=== PATIENT | male | born 1985 | race African-American/Black ===

== ENCOUNTER 2017-08-25 12:19 | Emergency (ER) | payer OTHER ==
[2017-08-25 12:34] VITALS: BP 116/70; PULSE 82; TEMP 97.8; BMI 16.7
--- NOTE | 2017-08-25 12:52 | PDOC ---
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 There was blood on toilet paper and bright red blood in the toilet bowl with brown stool. Stool wasn't hard. He went to the urgent care center this morning and got a rectal exam negative for hemorrhoids and blood. didn't move his bowels since then. Denies being constipated. This has never happened to him before. \ Past History - Past Medical History Allergies/Adverse Reactions: Allergies Allergy/AdvReac Type Severity Reaction Status Date / Time No Known Allergies Allergy Verified 08/25/17 12:33 Home Medications: Ambulatory Orders Carvedilol 3.125 mg PO BID 08/27/14 Lisinopril [Prinivil -] 5 mg PO DAILY 06/25/15 Cardiac Disorders: Yes COPD: No Other medical history: MUSCULAR DYSTROPHY - Surgical History Cardiac Surgery: Yes (PM 2015) - Immunization History Immunization Up to Date: Yes - Suicide/Smoking/Psychosocial Hx Smoking Status: No Smoking History: Never smoked Have you smoked in the past 12 months: No Number of Cigarettes Smoked Daily: 0 If you are a former smoker, when did you quit?: 7MONTHS AGO 'Breaking Loose' booklet given: 09/27/13 Hx Alcohol Use: Yes (OCCAS (3WKS AGO)) Drug/Substance Use Hx: No Substance Use Type: Alcohol Hx Substance Use Treatment: No Review of Systems - Review of Systems Constitutional: No: Symptoms Reported HEENTM: No: Symptoms Reported Respiratory: No: Symptoms reported Cardiac (ROS): No: Symptoms Reported ABD/GI: No: Symptoms Reported : No: Symptoms Reported Musculoskeletal: No: Symptoms Reported Integumentary: No: Symptoms Reported Neurological: No: Symptoms reported All Other Systems: Reviewed and Negative *Physical Exam - Vital Signs Last Vital Signs Temp Pulse Resp BP Pulse Ox 97.8 F 82 18 116/70 98 08/25/17 12:20 08/25/17 12:20 08/25/17 12:20 08/25/17 12:20 08/25/17 12:20 - Physical Exam General Appearance: Yes: Nourished, Appropriately Dressed. No: Apparent Distress HEENT: positive: EOMI, [place], Normal ENT Inspection Neck: negative: Tender Respiratory/Chest: positive: Lungs Clear, Normal Breath Sounds. negative: Chest Tender Cardiovascular: positive: Regular Rhythm, Regular Rate, S1, S2 Gastrointestinal/Abdominal: positive: Normal Bowel Sounds, Flat, Soft. negative : Tender Integumentary: positive: Normal Color, Dry, Warm Neurologic: positive: Fully Oriented, Alert, Normal Mood/Affect ED Treatment Course - LABORATORY CBC & Chemistry Diagram: 08/25/17 13:22 08/25/17 13:22 Medical Decision Making - Medical Decision Making 08/25/17 14:16 31M with 1 episode of painless hematochezia 2 days ago Basic labs, negative Occult stool negative GI follow up. 08/25/17 15:08 *DC/Admit/Observation/Transfer Diagnosis at time of Disposition: Hematochezia - Discharge Dispostion Disposition: HOME Admit: Yes - Referrals Referrals: Jose Alberto Farmer MD [Primary Care Provider] - Bernabe Iqbal DO [Staff Physician] - - Patient Instructions Printed Discharge Instructions: DI for Rectal Bleeding Additional Instructions: Follow up with Dr. Iqbal for possible colonoscopy/sigmoidoscopy Come back to work for any new, worsening or concerning symptoms. - Post Discharge Activity Forms/Work/School Notes: Back to Work
[2017-08-25 13:42] LABS: BASO % 0.6 % (0-2.0); EOS % 3.8 % (0-4.5); LYMPH % 25.1 % (8-40); MCH 27.3 pg (25.7-33.7); MCHC 31.8 g/dl (32.0-35.9); MEAN CELL VOLUME 85.9 fl (80-96); MEAN PLT VOLUME 8.7 fl (7.5-11.1); MONO % 5.8 % (3.8-10.2); NEUT % 64.7 % (42.8-82.8); PLATELET COUNT 190 K/MM3 (134-434); RBC 5.12 M/mm3 (4.00-5.60); RDW 14.2 % (11.9-15.9); WHITE BLOOD COUNT 8.1 K/mm3 (4.0-10.0)
[2017-08-25 14:06] LABS: ALBUMIN 4.4 g/dl (3.4-5.0); ANION GAP 4 (8-16); BILIRUBIN,TOTAL 0.9 mg/dL (0.2-1.0); BLOOD UREA NITROGEN 14 mg/dL (7-18); CALCIUM 9.2 mg/dL (8.5-10.1); CHLORIDE 103 mmol/L (98-107); CO2 31 mmol/L (21-32); CREATININE 0.3 mg/dL (0.7-1.3); GLUCOSE,RANDOM 85 mg/dL (74-106); POTASSIUM 4.3 mmol/L (3.5-5.1); SGOT/AST 109 U/L (15-37); SGPT/ALT 156 U/L (12-78); SODIUM 138 mmol/L (136-145)
[2017-08-25 14:07] LABS: ALK PHOS 53 U/L (45-117)
--- NOTE | 2017-08-25 14:56 | PDOC ---
Attending Attestation - Resident Resident Name: InnaCurtis - ED Attending Attestation I have performed the following: I have examined & evaluated the patient, The case was reviewed & discussed with the resident, I agree w/resident's findings & plan, Exceptions are as noted - HPI HPI: 08/25/17 14:51 " The patient is a 31 year old male, with a significant past medical history of muscular dystrophy, pacemaker, who presents to the emergency department with one episode of bright red blood per rectum 2 days ago. The patient states he moved his bowels on Friday evening and saw blood on the tissue with brown stool after wiping, as well as, bright red streaks mixed with brown stool in the toilet. The patient had one BM today that was normal, nonbloody. Pt is not on blood thinners. Has never had bloody stool before. Denies N/V. Denies abdominal pain. The patient denies chest pain, shortness of breath, headache and dizziness. The patient denies fever, chills, nausea, vomit, diarrhea and constipation. The patient denies dysuria, frequency, urgency and hematuria. Allergies: NKDA " - Physicial Exam PE: 08/25/17 14:55 GENERAL: Awake, alert, and fully oriented, in no acute distress HEAD: No signs of trauma EYES: PERRLA, EOMI, sclera anicteric, conjunctiva clear ENT: Auricles normal inspection, hearing grossly normal, nares patent, oropharynx clear without exudates. Moist mucosa NECK: Nontender, no stepoffs, Normal ROM, supple, no lymphadenopathy, JVD, or masses LUNGS: Breath sounds equal, clear to auscultation bilaterally. No wheezes, and no crackles HEART: Regular rate and rhythm, normal S1 and S2, no murmurs, rubs or gallops ABDOMEN: Soft, nontender, normoactive bowel sounds. No guarding, no rebound. No masses RECTAL: brown stool, no melena, no hematochezia, no hemorrhoids EXTREMITIES: Normal range of motion, no edema. No clubbing or cyanosis. No cords, erythema, or tenderness NEUROLOGICAL: Cranial nerves II through XII intact. 5/5 strength and sensation in all extremities, Normal speech, normal gait SKIN: Warm, Dry, normal turgor, no rashes or lesions noted. - Medical Decision Making 08/25/17 14:55 31 M with one episode of blood-streaked stool 2 days ago. Now with normal brown stool without blood. No anal fissures or hemorrhoids on exam but pt may have internal hemorrhoids. Pt with stable vitals, no evidence of significant blood loss. - Labs - Stool guaiac - GI f/u 08/25/17 14:58 guaiac negative Labs unremarkable Pt well appearing, vitals normal, no further episodes of BRBPR, clinically stable for DC. I discussed the physical exam findings, ancillary test results and final diagnoses with the patients family. I answered all of their questions. The family was satisfied with the care received and felt comfortable with the discharge plan and treatment plan. They agree to follow up with the primary care physician within 24-72 hours.
--- NOTE | 2017-08-25 15:10 | PDOC ---
*Physical Exam - Vital Signs Last Vital Signs Temp Pulse Resp BP Pulse Ox 97.8 F 82 18 116/70 98 08/25/17 12:20 08/25/17 12:20 08/25/17 12:20 08/25/17 12:20 08/25/17 12:20 ED Treatment Course - LABORATORY CBC & Chemistry Diagram: 08/25/17 13:22 08/25/17 13:22 - ADDITIONAL ORDERS Additional order review: Laboratory Results 08/25/17 13:22 Sodium 138 Potassium 4.3 Chloride 103 Carbon Dioxide 31 Anion Gap 4 L BUN 14 Creatinine 0.3 L Creat Clearance w eGFR > 60 Random Glucose 85 Calcium 9.2 Total Bilirubin 0.9 AST 109 H ALT 156 H Alkaline Phosphatase 53 Total Protein 8.0 Albumin 4.4 08/25/17 13:22 RBC 5.12 MCV 85.9 MCHC 31.8 L RDW 14.2 MPV 8.7 Neutrophils % 64.7 Lymphocytes % 25.1 Monocytes % 5.8 Eosinophils % 3.8 Basophils % 0.6 *DC/Admit/Observation/Transfer Diagnosis at time of Disposition: Hematochezia - Discharge Dispostion Disposition: HOME Condition at time of disposition: Good Admit: No - Referrals Referrals: Bernabe Iqbal DO [Staff Physician] - Jose Alberto Farmer MD [Primary Care Provider] - - Patient Instructions Printed Discharge Instructions: DI for Rectal Bleeding Additional Instructions: Follow up with Dr. Iqbal for possible colonoscopy/sigmoidoscopy Come back to work for any new, worsening or concerning symptoms. - Post Discharge Activity Forms/Work/School Notes: Back to Work
--- NOTE | 2017-08-25 23:08 | EKG ---
Test Reason : Blood Pressure : / mmHG Vent. Rate : 076 BPM Atrial Rate : 076 BPM P-R Int : 130 ms QRS Dur : 100 ms QT Int : 402 ms P-R-T Axes : 075 259 092 degrees QTc Int : 452 ms NORMAL SINUS RHYTHM POSSIBLE LEFT ATRIAL ENLARGEMENT CANNOT RULE OUT LATERAL INFARCT , AGE UNDETERMINED CANNOT RULE OUT INFERIOR-POSTERIOR INFARCT , AGE UNDETERMINED ABNORMAL ECG NO PREVIOUS ECGS AVAILABLE Confirmed by THEO BA MD ([id number]) on 08/25/2017 11:07:56 PM Referred By: Confirmed By:THEO BA MD
== END 2017-08-25 15:44 | disposition home or self-care (01) ==
LOC: JER 12:19
DX: K92.1 Melena (principal); G71.0 Muscular dystrophy; Z95.0 Presence of cardiac pacemaker
CPT/HCPCS: 36415; 80053; 82272; 85025; 93005; 93010; 99284-25

== ENCOUNTER 2018-07-02 00:36 | Observation (INO) | payer SELFPAY ==
[2018-07-02 00:54] VITALS: TEMP 98.3; BMI 17.9
--- NOTE | 2018-07-02 01:05 | PDOC ---
History of Present Illness - General History Source: Patient Exam Limitations: No Limitations - History of Present Illness Initial Comments: 07/02/18 01:27 The patient is a 32 year old with a past medical history of muscular dystrophy ( ICD placed) here today for evaluation of chest pain. The patient reports that his pain began tonight at 10pm tonight after he got into a verbal disagreement with someone. He reports that his chest pain radiates from upper area of his left chest by his shoulder to the lower area. He also reports that he had a mild cough this morning. Patient denies headache, lightheadedness. Denies fever, chills. Denies shortness of breath. Denies nausea, vomiting, diarrhea, abdominal pain. Denies lower extremity edema. Allergies: NKA PCP: none Manager Mall: Dr. Iman Mandel <Emory Pitt - Last Filed: 07/02/18 01:27> <Amarjit Oakes - Last Filed: 07/02/18 03:47> <Odalys Glez - Last Filed: 07/03/18 00:35> - General Chief Complaint: Chest Pain Stated Complaint: LEFT SIDE CHEST PAIN Time Seen by Provider: 07/02/18 01:05 Past History <Emory Pitt - Last Filed: 07/02/18 01:27> <Amarjit Oakes - Last Filed: 07/02/18 03:47> - Past Medical History Cardiac Disorders: Yes COPD: No - Surgical History Cardiac Surgery: Yes (PM 2016) - Immunization History Immunization Up to Date: Yes - Suicide/Smoking/Psychosocial Hx Smoking Status: No Smoking History: Never smoked Have you smoked in the past 12 months: No Number of Cigarettes Smoked Daily: 0 If you are a former smoker, when did you quit?: 7MONTHS AGO Information on smoking cessation initiated: No 'Breaking Loose' booklet given: 09/27/13 Hx Alcohol Use: No Drug/Substance Use Hx: No Substance Use Type: Alcohol Hx Substance Use Treatment: No <Odalys Glez - Last Filed: 07/03/18 00:35> - Past Medical History Allergies/Adverse Reactions: Allergies Allergy/AdvReac Type Severity Reaction Status Date / Time No Known Allergies Allergy Verified 08/25/17 12:33 Home Medications: Ambulatory Orders Carvedilol 6.25 mg PO BID 08/27/14 Lisinopril [Prinivil] 2.5 mg PO DAILY 06/25/15 Aspirin 81 mg PO DAILY #30 tab.chew 07/02/18 Review of Systems - Review of Systems Able to Perform ROS?: Yes Comments:: 07/02/18 01:27 GENERAL/CONSTITUTIONAL: No fever or chills. No weakness. HEAD, EYES, EARS, NOSE AND THROAT: No change in vision. No ear pain or discharge. No sore throat. GASTROINTESTINAL: No nausea, vomiting, diarrhea or constipation. GENITOURINARY: No dysuria, frequency, or change in urination. CARDIOVASCULAR: +chest pain. No shortness of breath. RESPIRATORY: +cough. No wheezing, or hemoptysis. MUSCULOSKELETAL: No joint or muscle swelling or pain. No neck or back pain. SKIN: No rash NEUROLOGIC: No headache, vertigo, loss of consciousness, or change in strength/ sensation. ENDOCRINE: No increased thirst. No abnormal weight change. HEMATOLOGIC/LYMPHATIC: No anemia, easy bleeding, or history of blood clots. ALLERGIC/IMMUNOLOGIC: No hives or skin allergy. <Emory Pitt - Last Filed: 07/02/18 01:27> *Physical Exam - Vital Signs Last Vital Signs Temp Pulse Resp BP Pulse Ox 98.3 F 92 H 98 H 104/71 98 07/02/18 00:51 07/02/18 00:51 07/02/18 00:51 07/02/18 00:51 07/02/18 00:51 - Physical Exam Comments: 07/02/18 01:27 Constitutional: Awake, alert, oriented. No acute distress. Head: Normocephalic. Atraumatic Eyes: PERRL. EOMI. Conjunctivae are not pale. ENT: Mucous membranes are moist and intact. Posterior pharynx without exudates or erythema. Uvula midline. Neck: Supple. Full ROM. No lymphadenopathy. Cardiovascular: +ICD left chest. Regular rate. Regular rhythm. S1, S2 regular. Distal pulses are 2+ and symmetric. Pulmonary/Chest: No evidence of respiratory distress. Clear to auscultation bilaterally No wheezing, rales or rhonchi. Abdominal: Soft and non-distended. There is no tenderness. No rebound, guarding or rigidity. No organomegaly. No palpable masses. Good bowel sounds. Back: No CVA tenderness. Musculoskeletal: No edema. No cyanosis. No clubbing. Full range of motion in all extremities. No calf tenderness. Radial/pedal pulses are intact and 2+ bilaterally Skin: Skin is warm and dry. No petechiae. No purpura. Neurological: Alert and oriented to person, place, and time. Cranial nerves II -XII are grossly intact. Normal speech. Strength is grossly symmetric. No sensory deficits. Psychiatric: Good eye contact. Normal interaction, affect and behavior. <Emory Pitt - Last Filed: 07/02/18 01:27> - Vital Signs Last Vital Signs Temp Pulse Resp BP Pulse Ox 98.3 F 92 H 98 H 104/71 98 07/02/18 00:51 07/02/18 00:51 07/02/18 00:51 07/02/18 00:51 07/02/18 00:51 <Amarjit Oakes - Last Filed: 07/02/18 03:47> - Vital Signs Last Vital Signs Temp Pulse Resp BP Pulse Ox 98.3 F 92 H 98 H 104/71 98 07/02/18 00:51 07/02/18 00:51 07/02/18 00:51 07/02/18 00:51 07/02/18 00:51 <Odalys Glez - Last Filed: 07/03/18 00:35> Moderate Sedation - Procedure Monitoring Vital Signs: Procedure Monitoring Vital Signs Temperature 98.3 F 07/02/18 00:51 Pulse Rate 92 H 07/02/18 00:51 Respiratory Rate 98 H 07/02/18 00:51 Blood Pressure 104/71 07/02/18 00:51 O2 Sat by Pulse Oximetry (%) 98 07/02/18 00:51 <Emory Pitt - Last Filed: 07/02/18 01:27> - Procedure Monitoring Vital Signs: Procedure Monitoring Vital Signs Temperature 98.3 F 07/02/18 00:51 Pulse Rate 92 H 07/02/18 00:51 Respiratory Rate 98 H 07/02/18 00:51 Blood Pressure 104/71 07/02/18 00:51 O2 Sat by Pulse Oximetry (%) 98 07/02/18 00:51 <Amarjit Oakes - Last Filed: 07/02/18 03:47> - Procedure Monitoring Vital Signs: Procedure Monitoring Vital Signs Temperature 98.3 F 07/02/18 00:51 Pulse Rate 92 H 07/02/18 00:51 Respiratory Rate 98 H 07/02/18 00:51 Blood Pressure 104/71 07/02/18 00:51 O2 Sat by Pulse Oximetry (%) 98 07/02/18 00:51 <Odalys Glez - Last Filed: 07/03/18 00:35> Heart Score/ECG Review - ECG Intrepretation Comment:: 07/02/18 01:38 sinus at 77, nl axis, lvh, r ordonez axis, t wave inversions lateral leads that are unchanged from prior ,q waves inferiorly which are age indeterminate, lvh, abnl ekg <Odalys Glez - Last Filed: 07/03/18 00:35> ED Treatment Course - LABORATORY CBC & Chemistry Diagram: 07/02/18 01:36 07/02/18 01:36 - ADDITIONAL ORDERS Additional order review: Laboratory Results 07/02/18 01:36 Sodium 141 Potassium 3.9 Chloride 106 Carbon Dioxide 32 Anion Gap 3 L BUN 15 Creatinine 0.4 L Creat Clearance w eGFR > 60 Random Glucose 98 Calcium 8.5 Magnesium 1.8 Total Bilirubin 0.5 AST 145 H ALT 173 H Alkaline Phosphatase 51 Creatine Kinase 5572 H Creatine Kinase Index 1.2 CK-MB (CK-2) 69.2 H Troponin I 0.15 H Total Protein 7.6 Albumin 4.1 07/02/18 01:36 RBC 4.79 MCV 85.1 MCHC 33.6 RDW 13.9 MPV 9.2 Neutrophils % 67.3 Lymphocytes % 26.3 Monocytes % 4.8 Eosinophils % 1.1 Basophils % 0.5 - Medications Given in the ED: ED Medications Discontinued Medications Generic Name Dose Route Start Last Admin Trade Name Freq PRN Reason Stop Dose Admin Aspirin 324 mg 07/02/18 01:21 07/02/18 01:34 Asa - PO 07/02/18 01:22 324 mg ONCE ONE Administration <Amarjit Oakes - Last Filed: 07/02/18 03:47> - LABORATORY CBC & Chemistry Diagram: 07/02/18 01:36 07/02/18 06:40 <Odalys Glez - Last Filed: 07/03/18 00:35> Medical Decision Making - Medical Decision Making 07/02/18 01:21 a/p: 32yo male with hx of muscular dystrophy and ICD placement - on lisinopril and coreg -pt with a verbal argument tonight and developed L sided cp -no radiation of the pain -pain to lower L ribs -denies trauma -denies ICD firing -denies palpitations -no diaphoresis or sob -no nausea -will obtain ekg, will send labs, cxr -no leg swelling or calf cramping -no recent travel -will give asa -states mild cough this AM- nonproductive 07/03/18 00:33 pt signed out to the oncoming ED physician pending trop and labs pt stated out of lisinopril and coreg x 1 week <Odalys Glez - Last Filed: 07/03/18 00:35> *DC/Admit/Observation/Transfer - Attestations Scribe Attestion: 07/02/18 01:28 Documentation prepared by BREANNA Vieyra, acting as director medical economics for Odalys Glez DO. <Emory Pitt - Last Filed: 07/02/18 01:27> - Discharge Dispostion Decision to Admit order: Yes <Amarjit Oakes - Last Filed: 07/02/18 03:47> - Attestations Physician Attestion: 07/03/18 00:35 I, Dr. Odalys Glez DO, attest that this document has been prepared under my direction and personally reviewed by me in its entirety. I further attest, that it accurately reflects all work, treatment, procedures and medical decision -making performed by me. <Odalys Glez - Last Filed: 07/03/18 00:35> Diagnosis at time of Disposition: Chest pain - Discharge Dispostion Disposition: HOME Condition at time of disposition: Improved
[2018-07-02] MEDS ORDERED: ASPIRIN 81 MG CHEWABLE TABLETS PO ONE (01:21)
[2018-07-02] MEDS ORDERED: ASPIRIN 81 MG CHEWABLE TABLETS ONE ×3 (01:24→12:02)
[2018-07-02 01:43] LABS: BASO % 0.5 % (0-2.0); EOS % 1.1 % (0-4.5); HEMATOCRIT 40.8 % (35.4-49); HEMOGLOBIN 13.7 GM/dL (11.7-16.9); LYMPH % 26.3 % (8-40); MCH 28.6 pg (25.7-33.7); MCHC 33.6 g/dl (32.0-35.9); MEAN CELL VOLUME 85.1 fl (80-96); MEAN PLT VOLUME 9.2 fl (7.5-11.1); MONO % 4.8 % (3.8-10.2); NEUT % 67.3 % (42.8-82.8); PLATELET COUNT 197 K/MM3 (134-434); RBC 4.79 M/mm3 (4.00-5.60); RDW 13.9 % (11.9-15.9); WHITE BLOOD COUNT 7.6 K/mm3 (4.0-10.0)
[2018-07-02 02:26] LABS: ALBUMIN 4.1 g/dl (3.4-5.0); ALK PHOS 51 U/L (45-117); ANION GAP 3 MMOL/L (8-16); BILIRUBIN,TOTAL 0.5 mg/dL (0.2-1); BLOOD UREA NITROGEN 15 mg/dL (7-18); CALCIUM 8.5 mg/dL (8.5-10.1); CHLORIDE 106 mmol/L (98-107); CO2 32 mmol/L (21-32); CREATININE 0.4 mg/dL (0.55-1.3); GLUCOSE,RANDOM 98 mg/dL (74-106); MAGNESIUM 1.8 mg/dL (1.8-2.4); POTASSIUM 3.9 mmol/L (3.5-5.1); SGOT/AST 145 U/L (15-37); SGPT/ALT 173 U/L (13-61); SODIUM 141 mmol/L (136-145); TOT PROT 7.6 g/dl (6.4-8.2)
--- NOTE | 2018-07-02 04:01 | PN ---
Teaching Attending Note Name of Resident: Brady Florence ATTENDING PHYSICIAN STATEMENT I saw and evaluated the patient. I reviewed the resident's note and discussed the case with the resident. I agree with the resident's findings and plan as documented. SUBJECTIVE: Richard is a 32 year old with a past medical history of muscular dystrophy ( ICD placed) here today for evaluation of chest pain. The patient reports that his pain began tonight at 10pm tonight after he got into a verbal disagreement with someone. He reports that his chest pain radiates from upper area of his left chest by his shoulder to the lower area. He also reports that he had a mild cough this morning. Patient denies headache, lightheadedness. Denies fever , chills, SOB, nausea, vomiting, diarrhea, abdominal pain, dysuria or lower extremity edema. He got 324 mg Aspirin in the ER and IV NS. OBJECTIVE: Alert and cachectic Vital Signs Period Temp Pulse Resp BP Sys/Casiano Pulse Ox Last 24 Hr 98.3 F 92 98 104/71 98 HEENT: No Jaundice, eye redness or discharge, PERRLA, EOMI. Normocephalic, atraumatic. External ears are normal and hearing is grossly intact. No nasal discharge. Neck: Supple, nontender. No palpable adenopathy or thyromegaly. No JVD Chest: Left chest wall ICD. Good effort. Clear to auscultation and percussion. Heart: Regular. No S3, rub or murmur Abdomen: Not distended, soft, nontender and no HSM. No rebound or guarding. Normoactive bowel sounds. Ext: Peripheral pulses intact. No leg edema. Muscle atrophy and limb deformity Skin: Warm and dry. No petechiae, rash or ecchymosis. Neuro: Alert. Oriented x3. CN 2-12 grossly intact. Sensation grossly intact in all four extremities and DTR are symmetric. Home Medications Medication Instructions Recorded Carvedilol 3.125 mg PO BID 08/27/14 Lisinopril [Prinivil -] 5 mg PO DAILY 06/25/15 Abnormal Lab Results 07/02/18 01:36 Anion Gap 3 L Creatinine 0.4 L AST 145 H ALT 173 H Creatine Kinase 5572 H CK-MB (CK-2) 69.2 H Troponin I 0.15 H ASSESSMENT AND PLAN: 1. Chest pain - Elevated CPK and troponin may be due to his underlying disease, but will admit to telemetry to rule out ACS. No acute ST-T wave changes on EKG and CXR is normal. Will get hepatitis serology, trend LFTs and get sonogram of RUQ. 2. DVT prophylaxis - Lovenox 40 mg SQ q 24 hours. 3. Advance directives - Full code
--- NOTE | 2018-07-02 04:24 | HP ---
CHIEF COMPLAINT: Chest pain PCP: Dr. Nancy Farmer Wood Tile Installer: Dr. Iman Mandel HISTORY OF PRESENT ILLNESS: 32yo M w/ h/o Orellana's muscular dystrophy who presents to the ED with L anterior chest pain with minimal radiation towards his shoulder that lasted several minutes. Pt reports at the time of chest pain he had just gotten into an argument and felt stressed. He denies any remitting factors or any exacerbation factors. Currently pt's symptoms have been completely resolved at this point. Pt denies any headache, visual disturbances, diaphoresis, jaw claudication, shortness of breath, palpitations, lightheadedness, abdominal pain. Recent Travel: Denies PAST MEDICAL HISTORY: Orellana's Muscular dystrophy PAST SURGICAL HISTORY: ICD implantation (2016; [facility]) Social History: Smoking: Denies Alcohol: Occasional Drugs: Denies Pt currently walks with a cane. Allergies No Known Allergies Allergy (Verified 08/25/17 12:33) HOME MEDICATIONS: Home Medications Medication Instructions Recorded Carvedilol 3.125 mg PO BID 08/27/14 Lisinopril [Prinivil -] 5 mg PO DAILY 06/25/15 REVIEW OF SYSTEMS As per HPI PHYSICAL EXAMINATION Vital Signs - 24 hr 07/02/18 00:51 Temperature 98.3 F Pulse Rate 92 H Respiratory 98 H Rate Blood Pressure 104/71 O2 Sat by Pulse 98 Oximetry (%) GENERAL: NAD, Awake, alert, and fully oriented, laying in bed HEENT: NC/AT, JYOTHI, MMM NECK: No JVD LUNGS: CTA bilaterally with good inspiratory effort. No wheezes. No accessory muscle use. On RA HEART: RRR, normal S1 and S2 without murmur. Pain not reproducible with chest palpation ABDOMEN: Soft, NT/ND, normoactive bowel sounds, no guarding. MUSCULOSKELETAL: No CVA tenderness. Diminished ROM with hip flexors. EXTREMITIES: 2+ DP pulses, No peripheral edema. PSYCHIATRIC: Cooperative. Good eye contact. Appropriate mood and affect. SKIN: Warm, dry, no rashes or lesions noted Laboratory Results - last 24 hr 07/02/18 07/02/18 01:36 01:36 WBC 7.6 RBC 4.79 Hgb 13.7 Hct 40.8 MCV 85.1 MCH 28.6 MCHC 33.6 RDW 13.9 Plt Count 197 MPV 9.2 Absolute Neuts (auto) 5.1 Neutrophils % 67.3 Lymphocytes % 26.3 Monocytes % 4.8 Eosinophils % 1.1 Basophils % 0.5 Nucleated RBC % 0 Sodium 141 Potassium 3.9 Chloride 106 Carbon Dioxide 32 Anion Gap 3 L BUN 15 Creatinine 0.4 L Creat Clearance w eGFR > 60 Random Glucose 98 Calcium 8.5 Magnesium 1.8 Total Bilirubin 0.5 AST 145 H ALT 173 H Alkaline Phosphatase 51 Creatine Kinase 5572 H Creatine Kinase Index 1.2 CK-MB (CK-2) 69.2 H Troponin I 0.15 H Total Protein 7.6 Albumin 4.1 ASSESSMENT/PLAN: Chest pain r/o ACS Orellana's Muscular dystrophy Pacemaker implantation Transaminitis --Asa given in ED; repeat troponins @0400 pending --Rpt EKG in AM --Rpt cardiac profile in AM --Cardiology --Continue home medications (confirmed with pt) --Lisinopril 5mg qdaily PO --Coreg 3.125mg BID PO --Monitor transaminases --ddx: BMD etiology, or cholestasis given AST:ALT ratio 0.8 FEN: Fluids: Not indicated currently Electrolyte Abnormalities: None currently Nutrition: Regular diet PPX: DVT - SCDs for now GI - Not indicated Medications confirmed with pt Case discussed with Dr. Val Florence, DO - IM PGY-2 Visit type - Emergency Visit Emergency Visit: Yes ED Registration Date: 07/02/18 Care time: The patient presented to the Emergency Department on the above date and was hospitalized for further evaluation of their emergent condition. - New Patient This patient is new to me today: Yes Date on this admission: 07/02/18 - Critical Care Critical Care patient: No
[2018-07-02 06:20] VITALS: BP 110/68; PULSE 87
[2018-07-02 07:36] LABS: ANION GAP 5 MMOL/L (8-16); BLOOD UREA NITROGEN 23 mg/dL (7-18); CALCIUM 8.3 mg/dL (8.5-10.1); CHLORIDE 106 mmol/L (98-107); CO2 30 mmol/L (21-32); CREATININE 0.3 mg/dL (0.55-1.3); GLUCOSE,RANDOM 97 mg/dL (74-106); POTASSIUM 3.8 mmol/L (3.5-5.1); SODIUM 142 mmol/L (136-145)
[2018-07-02] MEDS ORDERED: LISINOPRIL 5 MG TABLET (FP) PO SCH (10:00)
[2018-07-02] MEDS ORDERED: ASPIRIN COATED 81 MG TABLET.EC PO SCH (10:00)
[2018-07-02] MEDS ORDERED: CARVEDILOL 3.125 MG TABLET (FP) PO SCH (10:00)
--- NOTE | 2018-07-02 10:10 | PN ---
Teaching Attending Note Name of Resident: Najma Perez ATTENDING PHYSICIAN STATEMENT I saw and evaluated the patient. I reviewed the resident's note and discussed the case with the resident. I agree with the resident's findings and plan as documented. SUBJECTIVE: Patient has no chest pain at this time, no new complains. OBJECTIVE: Vital Signs Temperature 98.3 F 07/02/18 00:51 Pulse Rate 87 07/02/18 04:50 Respiratory Rate 18 07/02/18 04:50 Blood Pressure 110/68 07/02/18 04:50 O2 Sat by Pulse Oximetry (%) 98 07/02/18 04:50 GENERAL: NAD, Awake, alert, and fully oriented, laying in bed HEENT: NC/AT, JYOTHI, MMM, NECK: No JVD LUNGS: CTA bilaterally . No wheezes. No accessory muscle use. HEART: RRR, normal S1 and S2 without murmur. Pain not reproducible with chest palpation ABDOMEN: Soft, NT/ND, normoactive bowel sounds, no guarding. MUSCULOSKELETAL: No CVA tenderness. Diminished ROM with hip flexors. EXTREMITIES: 2+ DP pulses, No peripheral edema. PSYCHIATRIC: Cooperative. Good eye contact. Appropriate mood and affect. SKIN: Warm, dry, no rashes or lesions noted CBCD WBC 7.6 K/mm3 (4.0-10.0) 07/02/18 01:36 RBC 4.79 M/mm3 (4.00-5.60) 07/02/18 01:36 Hgb 13.7 GM/dL (11.7-16.9) 07/02/18 01:36 Hct 40.8 % (35.4-49) 07/02/18 01:36 MCV 85.1 fl (80-96) 07/02/18 01:36 MCHC 33.6 g/dl (32.0-35.9) 07/02/18 01:36 RDW 13.9 % (11.9-15.9) 07/02/18 01:36 Plt Count 197 K/MM3 (134-434) 07/02/18 01:36 MPV 9.2 fl (7.5-11.1) 07/02/18 01:36 CMP Sodium 142 mmol/L (136-145) 07/02/18 06:40 Potassium 3.8 mmol/L (3.5-5.1) 07/02/18 06:40 Chloride 106 mmol/L (98-107) 07/02/18 06:40 Carbon Dioxide 30 mmol/L (21-32) 07/02/18 06:40 Anion Gap 5 MMOL/L (8-16) L 07/02/18 06:40 BUN 23 mg/dL (7-18) H 07/02/18 06:40 Creatinine 0.3 mg/dL (0.55-1.3) L 07/02/18 06:40 Creat Clearance w eGFR > 60 (>60) 07/02/18 06:40 Random Glucose 97 mg/dL (74-106) 07/02/18 06:40 Calcium 8.3 mg/dL (8.5-10.1) L 07/02/18 06:40 Total Bilirubin 0.5 mg/dL (0.2-1) 07/02/18 01:36 AST 145 U/L (15-37) H 07/02/18 01:36 ALT 173 U/L (13-61) H 07/02/18 01:36 Alkaline Phosphatase 51 U/L (45-117) 07/02/18 01:36 Total Protein 7.6 g/dl (6.4-8.2) 07/02/18 01:36 Albumin 4.1 g/dl (3.4-5.0) 07/02/18 01:36 CARDIAC ENZYMES Creatine Kinase 4845 IU/L (26-308) H 07/02/18 04:13 Troponin I 0.17 ng/ml (0.00-0.05) H 07/02/18 04:13 Current Medications Generic Name Dose Route Start Last Admin Trade Name Ericq PRN Reason Stop Dose Admin Aspirin 81 mg 07/02/18 10:00 Ecotrin - PO DAILY [facility] Carvedilol 3.125 mg 07/02/18 10:00 Coreg - PO BID [facility] Lisinopril 5 mg 07/02/18 10:00 Prinivil PO DAILY [facility] Home Medications Medication Instructions Recorded Carvedilol 3.125 mg PO BID 08/27/14 Lisinopril [Prinivil -] 5 mg PO DAILY 06/25/15 Laboratory Tests 07/02/18 07/02/18 07/02/18 01:36 04:13 10:15 Creatine Kinase 5572 H 4845 H 4069 H CK-MB (CK-2) 69.2 H 57.3 H 40.6 H Troponin I 0.15 H 0.17 H 0.12 H ASSESSMENT AND PLAN: Patient is a 32yo male with pmhx of Orellana's muscular dystrophy, ICD implantation (2016 @ [facility]) presents to ed. with chest pain, and is admitted to r/o ACS. # Acute chest pain r/o ACS, cardio on the case, , asa 81mg daily. Echo pending. # Elevated CPK continue IVF #Orellana's Muscular dystrophy #Pacemaker implantation #acute Transaminitis will trend #HTN controlled : Continue Lisinopril, Coreg 3.125mg BID PO DVT - SCDs for now
--- NOTE | 2018-07-02 10:33 | PN ---
Physical Exam: SUBJECTIVE: Patient seen and examined OBJECTIVE: Vital Signs Temperature 98.3 F 07/02/18 00:51 Pulse Rate 87 07/02/18 04:50 Respiratory Rate 18 07/02/18 04:50 Blood Pressure 110/68 07/02/18 04:50 O2 Sat by Pulse Oximetry (%) 98 07/02/18 04:50 GENERAL: NAD, Awake, alert, and fully oriented, laying in bed HEENT: NC/AT, JYOTHI, MMM NECK: No JVD LUNGS: CTA bilaterally with good inspiratory effort. No wheezes. No accessory muscle use. On RA HEART: RRR, normal S1 and S2 without murmur. Pain not reproducible with chest palpation ABDOMEN: Soft, NT/ND, normoactive bowel sounds, no guarding. MUSCULOSKELETAL: No CVA tenderness. Diminished ROM with hip flexors. EXTREMITIES: 2+ DP pulses, No peripheral edema. PSYCHIATRIC: Cooperative. Good eye contact. Appropriate mood and affect. SKIN: Warm, dry, no rashes or lesions noted CBCD WBC 7.6 K/mm3 (4.0-10.0) 07/02/18 01:36 RBC 4.79 M/mm3 (4.00-5.60) 07/02/18 01:36 Hgb 13.7 GM/dL (11.7-16.9) 07/02/18 01:36 Hct 40.8 % (35.4-49) 07/02/18 01:36 MCV 85.1 fl (80-96) 07/02/18 01:36 MCHC 33.6 g/dl (32.0-35.9) 07/02/18 01:36 RDW 13.9 % (11.9-15.9) 07/02/18 01:36 Plt Count 197 K/MM3 (134-434) 07/02/18 01:36 MPV 9.2 fl (7.5-11.1) 07/02/18 01:36 CMP Sodium 142 mmol/L (136-145) 07/02/18 06:40 Potassium 3.8 mmol/L (3.5-5.1) 07/02/18 06:40 Chloride 106 mmol/L (98-107) 07/02/18 06:40 Carbon Dioxide 30 mmol/L (21-32) 07/02/18 06:40 Anion Gap 5 MMOL/L (8-16) L 07/02/18 06:40 BUN 23 mg/dL (7-18) H 07/02/18 06:40 Creatinine 0.3 mg/dL (0.55-1.3) L 07/02/18 06:40 Creat Clearance w eGFR > 60 (>60) 07/02/18 06:40 Calcium 8.3 mg/dL (8.5-10.1) L 07/02/18 06:40 Total Bilirubin 0.5 mg/dL (0.2-1) 07/02/18 01:36 AST 145 U/L (15-37) H 07/02/18 01:36 ALT 173 U/L (13-61) H 07/02/18 01:36 Alkaline Phosphatase 51 U/L (45-117) 07/02/18 01:36 Total Protein 7.6 g/dl (6.4-8.2) 07/02/18 01:36 Albumin 4.1 g/dl (3.4-5.0) 07/02/18 01:36 Active Medications Aspirin (Ecotrin -) 81 mg PO DAILY [facility] Carvedilol (Coreg -) 3.125 mg PO BID [facility] Lisinopril (Prinivil) 5 mg PO DAILY [facility] ASSESSMENT/PLAN: Chest pain r/o ACS Orellana's Muscular dystrophy Pacemaker implantation Transaminitis 32M w/ pmhx of Orellana's muscular dystrophy, ICD implantation (2016 @ [facility]) presents with chest pain, admitted to r/o ACS. #Chest Pain, r/o ACS -repeat EKG in AM --Asa given in ED; repeat troponins @0400 pending --Rpt EKG in AM --Rpt cardiac profile in AM --Cardiology --Continue home medications (confirmed with pt) --Lisinopril 5mg qdaily PO --Coreg 3.125mg BID PO --Monitor transaminases --ddx: BMD etiology, or cholestasis given AST:ALT ratio 0.8 #FEN Fluids: Not indicated currently Electrolyte Abnormalities: None currently Nutrition: Regular diet Prophylaxis -DVT - SCDs for now GI - Not indicated Medications confirmed with pt Case discussed with Dr. Val Florence, DO - IM PGY-2
--- NOTE | 2018-07-02 12:03 | EKG ---
Test Reason : Blood Pressure : / mmHG Vent. Rate : 070 BPM Atrial Rate : 070 BPM P-R Int : 138 ms QRS Dur : 110 ms QT Int : 418 ms P-R-T Axes : 077 -88 097 degrees QTc Int : 451 ms NORMAL SINUS RHYTHM WITH SINUS ARRHYTHMIA POSSIBLE LEFT ATRIAL ENLARGEMENT INDETERMINATE AXIS LATERAL INFARCT , AGE UNDETERMINED INFERIOR-POSTERIOR INFARCT (CITED ON OR BEFORE 25-AUG-2017) ABNORMAL ECG WHEN COMPARED WITH ECG OF 02-JUL-2018 00:58, NO SIGNIFICANT CHANGE WAS FOUND Confirmed by HENRIETTA LORENZO MD ([id number]) on 07/02/2018 12:03:07 PM Referred By: Sally CHRIS Confirmed By:HENRIETTA LORENZO MD
--- NOTE | 2018-07-02 12:05 | EKG ---
Test Reason : Blood Pressure : / mmHG Vent. Rate : 077 BPM Atrial Rate : 077 BPM P-R Int : 132 ms QRS Dur : 110 ms QT Int : 400 ms P-R-T Axes : 077 269 090 degrees QTc Int : 452 ms NORMAL SINUS RHYTHM POSSIBLE LEFT ATRIAL ENLARGEMENT RIGHT SUPERIOR AXIS DEVIATION LEFT VENTRICULAR HYPERTROPHY INFERIOR-POSTERIOR INFARCT (CITED ON OR BEFORE 25-AUG-2017) ABNORMAL ECG WHEN COMPARED WITH ECG OF 25-AUG-2017 12:27, ST NO LONGER DEPRESSED IN INFERIOR LEADS Confirmed by HENRIETTA LORENZO MD ([id number]) on 07/02/2018 12:05:16 PM Referred By: Confirmed By:HENRIETTA LORENZO MD
[2018-07-02] MEDS ORDERED: CARVEDILOL 3.125 MG TABLET (FP) ONE (12:15)
[2018-07-02] MEDS ORDERED: LISINOPRIL 5 MG TABLET (FP) ONE (12:15)
--- NOTE | 2018-07-02 15:51 | ECHO ---
Name: WILBERT HAMM Exam:Adult Echocardiogram Study Date: 07/02/2018 11:55 AM Age: 32 yrs Reason For Study: CHEST PAIN Height: 70 in Weight: 125 lb BSA: 1.7 m2 MMode/2D Measurements & Calculations IVSd: 0.83 cm Ao root diam: 2.9 cm LVIDd: 5.9 cm LA dimension: 3.4 cm LVIDs: 5.5 cm LVPWd: 0.83 cm EDV(Teich): 173.1 ml TAPSE: 3.0 cm ESV(Teich): 146.2 ml Doppler Measurements & Calculations MV E max robert: 70.6 cm/sec MR max robert: 449.6 cm/sec MV A max robert: 37.4 cm/sec MR max P.9 mmHg MV E/A: 1.9 MV dec time: 0.16 sec TR max robert: 197.9 cm/sec Med Peak E' Robert: 11.9 cm/sec TR max P.7 mmHg Med E/e': 5.9 Lat Peak E' Robert: 12.1 cm/sec Lat E/e': 5.8 Procedure A complete two-dimensional transthoracic echocardiogram was performed (2D, M-mode, Doppler and color flow Doppler). Left Ventricle The left ventricle is mildly dilated. Left ventricular systolic function is severely reduced. Ejectio n Fraction = 20-25%. There is severe global hypokinesis of the left ventricle. Right Ventricle The right ventricle is normal in size and function. There is a pacemaker lead in the right ventricle. Atria Normal left and right atrial size and function. Mitral Valve There is mild to moderate mitral regurgitation. Tricuspid Valve There is trace tricuspid regurgitation. There was insufficient TR detected to calculate RV systolic p ressure. Aortic Valve No hemodynamically significant valvular aortic stenosis. No aortic regurgitation is present. Pulmonic Valve There is no pulmonic valvular regurgitation. Great Vessels The aortic root is normal size. Pericardium/Pleura There is no pericardial effusion. Interpretation Summary The left ventricle is mildly dilated. Left ventricular systolic function is severely reduced. There is severe global hypokinesis of the left ventricle. The right ventricle is normal in size and function. There is mild to moderate mitral regurgitation. There is trace tricuspid regurgitation. MD Teddy Suero 07/02/2018 03:50 PM
--- NOTE | 2018-07-02 16:01 | CON.CARD ---
Consult Consult Specialty:: Cardiology Referred by:: ED Reason for Consultation:: Chest pain - History of Present Illness Chief Complaint: Chest pain with mildly elevated tropoinin History of Present Illness: 32 year-old man with a PMHx of chronic systolic CHF, s/p ICD implantation (2016 ; [facility]), Orellana's muscular dystrophy who presents to the ED with left anterior and lateral chest pain. The patient developed severe left anterior and lateral chest pain with minimal radiation towards his shoulder that lasted several minutes with local tenderness at that time. He reports at the time of chest pain he had just gotten into an argument and felt stressed. His chest pain lasted for several hours and resolved completely at the time of exam. He has no associated SOB, palpitation, diaphoresis, syncope or near syncope. He is able to walk 4-5 blocks in slow pace at baseline. No edema, orthopnea or PND. ECG 07/02/2018 revealed sinus rhythm with abnormal ST and T in the anterior and lateral leads. Echo 07/02/2018 showed mild LV dilatation with severe global systolic dysfunction. LVEF = 20-25%. Mild to moderate MR. CPK is severely elevated. But CK-MB is only 1.1-1.2%. Troponin is mildly elevated, non-dynamic. - History Source History Provided By: Patient, Family Member, Medical Record Limitations to Obtaining History: No Limitations - Past Medical History Cardio/Vascular: Yes: CHF, Mitral Insufficiency Musculoskeletal: Yes: Other - Alcohol/Substance Use Hx Alcohol Use: No - Smoking History Smoking history: Never smoked Have you smoked in the past 12 months: No Aproximately how many cigarettes per day: 0 If you are a former smoker, when did you quit?: 7MONTHS AGO Home Medications - Allergies Allergies/Adverse Reactions: Allergies Allergy/AdvReac Type Severity Reaction Status Date / Time No Known Allergies Allergy Verified 08/25/17 12:33 - Home Medications Home Medications: Ambulatory Orders Carvedilol 6.25 mg PO BID 08/27/14 Lisinopril [Prinivil -] 2.5 mg PO DAILY 06/25/15 Review of Systems - Review of Systems Constitutional: reports: No Symptoms Eyes: reports: No Symptoms HENT: reports: No Symptoms Neck: reports: No Symptoms Cardiovascular: reports: Chest Pain Respiratory: reports: No Symptoms Gastrointestinal: reports: No Symptoms Genitourinary: reports: No Symptoms Breasts: reports: No Symptoms Reported Musculoskeletal: reports: Muscle Weakness Integumentary: reports: No Symptoms Neurological: reports: No Symptoms Endocrine: reports: No Symptoms Hematology/Lymphatic: reports: No Symptoms Psychiatric: reports: No Symptoms Vital Signs: Vital Signs Temperature 98.3 F 07/02/18 00:51 Pulse Rate 87 07/02/18 04:50 Respiratory Rate 18 07/02/18 04:50 Blood Pressure 110/68 07/02/18 04:50 O2 Sat by Pulse Oximetry (%) 98 07/02/18 04:50 General: Well developed. Well nourished. No acute distress. Head: Normocephalic. Atraumatic, Eyes: PERRLA, EOMI. Sclerae anicteric. Conjunctivae clear. Neck: Supple. No JVD. No bruits. Heart: Normal S1, S2: Regular rhythm and rate. No murmur. No gallop or rub. Lungs: Symmetrical air entry. Clear to auscultation. No crackles. No wheezing or rhonchi. Abdomen: Soft. Bowel sound positive. Non tender. No masses. Extremities: No edema. No clubbing or cyanosis. PD 2+, equal bilaterally. Neuro: Intact, no focal findings. AAO X3. - Other Data Labs, Other Data: CBC, BMP 07/02/18 01:36 07/02/18 06:40 Troponin, BNP 07/02/18 07/02/18 07/02/18 01:36 04:13 10:15 Troponin I 0.15 H 0.17 H 0.12 H Troponin, BNP 07/02/18 07/02/18 07/02/18 01:36 04:13 10:15 Troponin I 0.15 H 0.17 H 0.12 H Assessment/Plan 32 year-old man with a PMHx of chronic systolic CHF, s/p ICD implantation (2016 ; [facility]), Orellana's muscular dystrophy who presents to the ED with left anterior and lateral chest pain. ECG 07/02/2018 revealed sinus rhythm with abnormal ST and T in the anterior and lateral leads. Echo 07/02/2018 showed mild LV dilatation with severe global systolic dysfunction. LVEF = 20-25%. Mild to moderate MR. CPK is severely elevated. But CK-MB is only 1.1-1.2%. Troponin is mildly elevated, non-dynamic. 1) Chest pain with elevated troponin: Atypical chest pain with evidence of rhabdomyolysis. CK-MB is negative for cardiac muscle damage. Mildly elevated troponin is unrelated to the degree of muscle damage. Baseline ECG abnormalities are likely due to severe LV systolic dysfunction. It is NOT ACS. 2) Chronic systolic CHF, s/p ICD: He is well compensated without physical signs of fluid overload. Continue carvedilol and lisinopril. Out-pt cardiac follow up with his primary plumbing technician, Dr. Mandel. Please call us for reconsult as needed.
--- NOTE | 2018-07-02 16:59 | DS ---
Physical Exam: SUBJECTIVE: Patient seen and examined at bedside. No acute events overnight. OBJECTIVE: Vital Signs Period Temp Pulse Resp BP Sys/Casiano Pulse Ox Last 24 Hr 98.3 F 87-92 18-98 104-110/68-71 98-98 PHYSICAL EXAM GENERAL: NAD, Awake, alert, and fully oriented, laying in bed HEENT: NC/AT, JYOTHI, MMM NECK: No JVD LUNGS: CTA bilaterally with good inspiratory effort. No wheezes. No accessory muscle use. On RA HEART: RRR, normal S1 and S2 without murmur. Pain not reproducible with chest palpation ABDOMEN: Soft, NT/ND, normoactive bowel sounds, no guarding. MUSCULOSKELETAL: No CVA tenderness. Diminished ROM with hip flexors. EXTREMITIES: 2+ DP pulses, No peripheral edema. PSYCHIATRIC: Cooperative. Good eye contact. Appropriate mood and affect. SKIN: Warm, dry, no rashes or lesions noted LABS CBCD WBC 7.6 K/mm3 (4.0-10.0) 07/02/18 01:36 RBC 4.79 M/mm3 (4.00-5.60) 07/02/18 01:36 Hgb 13.7 GM/dL (11.7-16.9) 07/02/18 01:36 Hct 40.8 % (35.4-49) 07/02/18 01:36 MCV 85.1 fl (80-96) 07/02/18 01:36 MCHC 33.6 g/dl (32.0-35.9) 07/02/18 01:36 RDW 13.9 % (11.9-15.9) 07/02/18 01:36 Plt Count 197 K/MM3 (134-434) 07/02/18 01:36 MPV 9.2 fl (7.5-11.1) 07/02/18 01:36 CMP Sodium 142 mmol/L (136-145) 07/02/18 06:40 Potassium 3.8 mmol/L (3.5-5.1) 07/02/18 06:40 Chloride 106 mmol/L (98-107) 07/02/18 06:40 Carbon Dioxide 30 mmol/L (21-32) 07/02/18 06:40 Anion Gap 5 MMOL/L (8-16) L 07/02/18 06:40 BUN 23 mg/dL (7-18) H 07/02/18 06:40 Creatinine 0.3 mg/dL (0.55-1.3) L 07/02/18 06:40 Creat Clearance w eGFR > 60 (>60) 07/02/18 06:40 Calcium 8.3 mg/dL (8.5-10.1) L 07/02/18 06:40 Total Bilirubin 0.5 mg/dL (0.2-1) 07/02/18 01:36 AST 145 U/L (15-37) H 07/02/18 01:36 ALT 173 U/L (13-61) H 07/02/18 01:36 Alkaline Phosphatase 51 U/L (45-117) 07/02/18 01:36 Total Protein 7.6 g/dl (6.4-8.2) 07/02/18 01:36 Albumin 4.1 g/dl (3.4-5.0) 07/02/18 01:36 HOSPITAL COURSE: Date of Admission:07/02/18 IMAGING: * Echo 07/02/2018 showed mild LV dilatation with severe global systolic dysfunction. LVEF = 20-25%. Mild to moderate MR. * ECG 07/02/2018 revealed sinus rhythm with abnormal ST and T in the anterior and lateral leads. * CXR: No acute chest pathology. 32yo M w/ h/o Orellana's muscular dystrophy presented to the ED with L anterior chest pain with minimal radiation towards his shoulder that lasted several minutes. EKG was done that showed NSR with abnormal ST and T in the anterior and lateral leads. Trops were mildly elevated. Echo was also done that showed LVEF 20-25%, and mild LV dilatation with severe global systolic dysfxn. Cardiac eval revealed pt's abnormal lab findings and symptoms were not due to ACS. Findings likely abnormal in setting of pt's muscular dystrophy. Pt's symptoms improved during his hospital stay and he was subsequently discharged to home with recommendation to follow up with his PCP and tactical debriefer officer. Date of Discharge: 07/02/18 Minutes to complete discharge: 40 Discharge Summary Reason For Visit: CHEST PAIN Condition: Improved - Instructions Diet, Activity, Other Instructions: You were seen in the hospital for complaints of chest pain. In the hospital, you were given medication for your chest pain. Additionally, you were evaluated by a tactical debriefer officer and found to have no acute cardiac condition at this time. Imaging and lab studies were done that showed abnormal values which are likely related to muscular dystrophy. You are being discharged home. MEDICAL RECOMMENDATIONS Please take Aspirin 81 mg by mouth once a day. A prescription has been sent to your pharmacy. CONSULT RECOMMENDATIONS Please follow up with your primary care physician within 1 week. Please follow up with your tactical debriefer officer at [facility], Dr. Iman Mandel , within 1-2 weeks. It is important to follow up with your specialty doctor for further evaluation. If you experience worsening chest pain, shortness of breath, persistent headache , vision changes, difficulty breathing, please proceed to your nearest emergency room immediately. Referrals: Eric Melgar MD [Staff Physician] - 1 Week Disposition: HOME - Home Medications Comprehensive Discharge Medication List: Ambulatory Orders Carvedilol 6.25 mg PO BID 08/27/14 Lisinopril [Prinivil] 2.5 mg PO DAILY 06/25/15 Aspirin 81 mg PO DAILY #30 tab.chew 07/02/18 This patient is new to me today: Yes Date on this admission: 07/05/18 Emergency Visit: Yes ED Registration Date: 07/02/18 Care time: The patient presented to the Emergency Department on the above date and was hospitalized for further evaluation of their emergent condition. Critical Care patient: No - Discharge Referral Referred to [facility] Med P.C.: No
== END 2018-07-02 17:00 | disposition home or self-care (01) ==
LOC: JER 00:36 → JERBED 03:48
PROVIDERS: ADMIT Internal Medicine; ATTEND Internal Medicine
CPT/HCPCS: 36415; 71046-TC-FY; 80048; 80053; 82550; 82553; 83735; 84484; 85025; 93005; 93010; 93306-TC; 99284-25; G0378

== ENCOUNTER 2020-07-28 13:30 | Inpatient (IN) | payer SELFPAY ==
[2020-07-28] MEDS ORDERED: SODIUM CHLORIDE 1,000 ML IV STA (15:35)
[2020-07-28] MEDS ORDERED: FAMOTIDINE 20 MG/50 ML IVPB 20 MG/50 ML MG IVPB ONE ×2 (15:35→15:43)
[2020-07-28] MEDS ORDERED: MAG HYDROX/AL HYDROX/SIMETH -MYLANTA- ORAL SUSPENSION PO ONE (15:36)
[2020-07-28] MEDS ORDERED: MAG HYDROX/AL HYDROX/SIMETH 30 ML UNIT-DOSE CUP ONE (15:43)
[2020-07-28 16:50] LABS: PH,URINE 5.5 (5.0-8.0); URINE APPEARANCE CLEAR; URINE BILIRUBIN 2+ (NEGATIVE); URINE COLOR DK YELLOW; URINE GLUCOSE (UA) NEGATIVE (NEGATIVE); URINE KETONE 1+ (NEGATIVE); URINE LEUK ESTERASE NEGATIVE (NEGATIVE); URINE NITRITE NEGATIVE (NEGATIVE); URINE PROTEIN TRACE (NEGATIVE)
[2020-07-28 16:52] LABS: BASO % 0.6 % (0-2.0); EOS % 0.5 % (0-4.5); HEMATOCRIT 39.5 % (35.4-49); HEMOGLOBIN 12.5 GM/dL (11.7-16.9); LYMPH % 20.6 % (8-40); MCH 27.6 pg (25.7-33.7); MCHC 31.7 g/dl (32.0-35.9); MEAN PLT VOLUME 11.4 fl (7.5-11.1); MONO % 5.2 % (3.8-10.2); NEUT % 73.1 % (42.8-82.8); RBC 4.54 M/mm3 (4.00-5.60); RDW 14.3 % (11.9-15.9); WHITE BLOOD COUNT 9.1 K/mm3 (4.0-10.0)
[2020-07-28 16:59] LABS: POTASSIUM 4.3 mmol/L (3.5-5.1)
[2020-07-28 17:03] LABS: ALBUMIN 3.6 g/dl (3.4-5.0); BLOOD UREA NITROGEN 11.6 mg/dL (7-18); CALCIUM 8.5 mg/dL (8.5-10.1)
[2020-07-28 17:05] LABS: CREATININE 0.4 mg/dL (0.55-1.3)
[2020-07-28 17:07] LABS: BILIRUBIN,TOTAL 0.9 mg/dL (0.2-1); TOT PROT 6.4 g/dl (6.4-8.2)
[2020-07-28 18:13] LABS: PLATELET COUNT 179 K/MM3 (134-434)
[2020-07-28 18:14] LABS: PLATELET ESTIMATE ADEQUATE
[2020-07-29] MEDS ORDERED: MAG HYDROX/AL HYDROX/SIMETH 30 ML UNIT-DOSE CUP PO PRN (01:01)
[2020-07-29 08:06] LABS: BASO % 0.6 % (0-2.0); EOS % 0.8 % (0-4.5); HEMATOCRIT 37.6 % (35.4-49); HEMOGLOBIN 12.3 GM/dL (11.7-16.9); MCH 28.1 pg (25.7-33.7); MCHC 32.6 g/dl (32.0-35.9); MEAN CELL VOLUME 86.4 fl (80-96); MEAN PLT VOLUME 10.6 fl (7.5-11.1); MONO % 5.4 % (3.8-10.2); NEUT % 66.2 % (42.8-82.8); PLATELET COUNT 162 K/MM3 (134-434); RBC 4.35 M/mm3 (4.00-5.60); RDW 14.1 % (11.9-15.9); WHITE BLOOD COUNT 8.8 K/mm3 (4.0-10.0)
[2020-07-29 08:21] LABS: POTASSIUM 4.1 mmol/L (3.5-5.1)
[2020-07-29 08:31] LABS: ALBUMIN 3.2 g/dl (3.4-5.0); BLOOD UREA NITROGEN 13.2 mg/dL (7-18)
[2020-07-29 08:34] LABS: CREATININE 0.3 mg/dL (0.55-1.3)
[2020-07-29 08:36] LABS: BILIRUBIN,TOTAL 0.8 mg/dL (0.2-1); TOT PROT 5.7 g/dl (6.4-8.2)
[2020-07-29] MEDS ORDERED: PANTOPRAZOLE 40 MG TABLET PO SCH (10:00)
[2020-07-29] MEDS ORDERED: ENOXAPARIN NA (PORCINE) 40 MG/0.4 ML DISP.SYRIN SQ ONE (10:33)
[2020-07-29] MEDS ORDERED: PANTOPRAZOLE 40 MG TABLET ONE (10:33)
[2020-07-29] MEDS: PANTOPRAZOLE 40 MG TABLET PO SCH ×2 (10:38→21:49)
[2020-07-29] MEDS: ENOXAPARIN NA (PORCINE) 40 MG/0.4 ML DISP.SYRIN SQ SCH (10:38)
[2020-07-29] MEDS ORDERED: ASPIRIN 81 MG CHEWABLE TABLETS ONE (11:28)
[2020-07-29] MEDS: ASPIRIN 81 MG CHEWABLE TABLETS PO SCH (11:29)
[2020-07-29 11:31] LABS: COCAINE, UR NEGATIVE ng/ml (CUTOFF=300); URINE AMPHETAMINES NEGATIVE ng/ml (CUTOFF=500)
[2020-07-29 11:38] LABS: METHADONE, UR NEGATIVE ng/ml (CUTOFF=300); OPIATES, URI NEGATIVE ng/ml (CUTOFF=300); PHENCYCLIDINE,URINE NEGATIVE ng/ml (CUTOFF=25); URINE BARBITURATES NEGATIVE ng/ml (CUTOFF=200); URINE BENZODIAZEPINES NEGATIVE ng/ml (CUTOFF=200)
[2020-07-29] MEDS ORDERED: SPIRONOLACTONE 25 MG TABLET ONE (12:38)
[2020-07-29] MEDS: SPIRONOLACTONE 25 MG TABLET PO SCH (12:39)
[2020-07-29 16:39] VITALS: BMI 19.0
[2020-07-29] MEDS: CARVEDILOL 3.125 MG TABLET (FP) PO SCH (21:49)
[2020-07-29] MEDS ORDERED: CARVEDILOL 3.125 MG TABLET (FP) PO SCH (22:00)
[2020-07-30 08:44] LABS: BASO % 0.3 % (0-2.0); EOS % 0.9 % (0-4.5); HEMATOCRIT 38.9 % (35.4-49); HEMOGLOBIN 12.6 GM/dL (11.7-16.9); LYMPH % 32.4 % (8-40); MCH 28.3 pg (25.7-33.7); MCHC 32.3 g/dl (32.0-35.9); MEAN CELL VOLUME 87.8 fl (80-96); MEAN PLT VOLUME 11.2 fl (7.5-11.1); MONO % 4.9 % (3.8-10.2); NEUT % 61.5 % (42.8-82.8); PLATELET COUNT 171 K/MM3 (134-434); RBC 4.43 M/mm3 (4.00-5.60); RDW 14.4 % (11.9-15.9); WHITE BLOOD COUNT 8.5 K/mm3 (4.0-10.0)
[2020-07-30 09:08] LABS: POTASSIUM 4.2 mmol/L (3.5-5.1)
[2020-07-30 09:15] LABS: ALBUMIN 3.4 g/dl (3.4-5.0); BLOOD UREA NITROGEN 13.1 mg/dL (7-18); CALCIUM 8.4 mg/dL (8.5-10.1); MAGNESIUM 1.8 mg/dL (1.8-2.4)
[2020-07-30 09:19] LABS: CREATININE 0.4 mg/dL (0.55-1.3)
[2020-07-30 09:20] LABS: TOT PROT 5.8 g/dl (6.4-8.2)
[2020-07-30 09:22] LABS: BILIRUBIN,TOTAL 0.9 mg/dL (0.2-1)
[2020-07-30] MEDS ORDERED: PT OWN MED DRAWER 7, Y5N ONE (09:28)
[2020-07-30] MEDS ORDERED: LISINOPRIL 5 MG TABLET PO SCH (10:00)
[2020-07-30] MEDS: PANTOPRAZOLE 40 MG TABLET PO SCH ×2 (11:30→21:59)
[2020-07-30] MEDS: LISINOPRIL 5 MG TABLET PO SCH (11:30)
[2020-07-30] MEDS: SPIRONOLACTONE 25 MG TABLET PO SCH (11:30)
[2020-07-30] MEDS: CARVEDILOL 3.125 MG TABLET (FP) PO SCH ×2 (11:31→22:00)
[2020-07-30] MEDS: ASPIRIN 81 MG CHEWABLE TABLETS PO SCH (11:31)
[2020-07-30] MEDS: ENOXAPARIN NA (PORCINE) 40 MG/0.4 ML DISP.SYRIN SQ SCH (11:31)
[2020-07-30 14:40] LABS: HIV INTERPRETATION NEGATIVE (NEGATIVE)
[2020-07-31 08:19] LABS: BASO % 0.4 % (0-2.0); EOS % 0.7 % (0-4.5); HEMATOCRIT 36.2 % (35.4-49); HEMOGLOBIN 11.9 GM/dL (11.7-16.9); LYMPH % 23.7 % (8-40); MCH 28.2 pg (25.7-33.7); MCHC 32.7 g/dl (32.0-35.9); MEAN CELL VOLUME 86.2 fl (80-96); MEAN PLT VOLUME 11.1 fl (7.5-11.1); MONO % 6.3 % (3.8-10.2); NEUT % 68.9 % (42.8-82.8); PLATELET COUNT 172 K/MM3 (134-434); RBC 4.21 M/mm3 (4.00-5.60); RDW 14.3 % (11.9-15.9); WHITE BLOOD COUNT 8.1 K/mm3 (4.0-10.0)
[2020-07-31 08:46] LABS: POTASSIUM 4.4 mmol/L (3.5-5.1)
[2020-07-31 08:51] LABS: BLOOD UREA NITROGEN 10.2 mg/dL (7-18); CALCIUM 8.1 mg/dL (8.5-10.1)
[2020-07-31 08:52] LABS: MAGNESIUM 1.8 mg/dL (1.8-2.4)
[2020-07-31 08:54] LABS: BILIRUBIN,TOTAL 0.7 mg/dL (0.2-1); CREATININE 0.3 mg/dL (0.55-1.3); TOT PROT 5.3 g/dl (6.4-8.2)
[2020-07-31] MEDS: PANTOPRAZOLE 40 MG TABLET PO SCH (09:47)
[2020-07-31] MEDS: ASPIRIN 81 MG CHEWABLE TABLETS PO SCH (09:47)
[2020-07-31] MEDS: CARVEDILOL 3.125 MG TABLET (FP) PO SCH ×2 (09:47→22:02)
[2020-07-31] MEDS: ENOXAPARIN NA (PORCINE) 40 MG/0.4 ML DISP.SYRIN SQ SCH (09:47)
[2020-07-31] MEDS: SPIRONOLACTONE 25 MG TABLET PO SCH (09:47)
[2020-07-31] MEDS: LISINOPRIL 5 MG TABLET PO SCH (09:48)
[2020-07-31 20:08] LABS: HEP B CORE AB, TOT Negative (Negative)
[2020-08-01 06:00] VITALS: TEMP 97.8
[2020-08-01 07:53] LABS: BASO % 0.4 % (0-2.0); EOS % 0.9 % (0-4.5); HEMATOCRIT 37.5 % (35.4-49); HEMOGLOBIN 12.1 GM/dL (11.7-16.9); LYMPH % 31.1 % (8-40); MCHC 32.3 g/dl (32.0-35.9); MEAN CELL VOLUME 86.7 fl (80-96); MEAN PLT VOLUME 11.1 fl (7.5-11.1); MONO % 7.5 % (3.8-10.2); NEUT % 60.1 % (42.8-82.8); PLATELET COUNT 162 K/MM3 (134-434); RBC 4.32 M/mm3 (4.00-5.60); RDW 14.2 % (11.9-15.9); WHITE BLOOD COUNT 7.7 K/mm3 (4.0-10.0)
[2020-08-01 08:17] LABS: POTASSIUM 4.1 mmol/L (3.5-5.1)
[2020-08-01 08:54] LABS: ALBUMIN 2.9 g/dl (3.4-5.0); CALCIUM 8.2 mg/dL (8.5-10.1)
[2020-08-01 08:55] LABS: BLOOD UREA NITROGEN 8.9 mg/dL (7-18); MAGNESIUM 1.7 mg/dL (1.8-2.4)
[2020-08-01 08:58] LABS: CREATININE 0.3 mg/dL (0.55-1.3)
[2020-08-01 08:59] LABS: TOT PROT 5.2 g/dl (6.4-8.2)
[2020-08-01] MEDS ORDERED: MAGNESIUM OXIDE 400 MG TABLET (FP) PO ONE (09:02)
[2020-08-01] MEDS: CARVEDILOL 3.125 MG TABLET (FP) PO SCH (09:52)
[2020-08-01] MEDS: LISINOPRIL 5 MG TABLET PO SCH (09:52)
[2020-08-01] MEDS: ENOXAPARIN NA (PORCINE) 40 MG/0.4 ML DISP.SYRIN SQ SCH (09:53)
[2020-08-01] MEDS: SPIRONOLACTONE 25 MG TABLET PO SCH (09:53)
[2020-08-01 10:29] VITALS: BP 100/63; PULSE 87
== END 2020-08-01 11:29 | disposition home or self-care (01) | DRG 254 ==
LOC: JER 13:30 → JERBED 18:12 → J7W 07-29 16:13
PROVIDERS: ADMIT Internal Medicine; ATTEND Nurse Practitioner Family
DX: R14.0 Abdominal distension (gaseous) (principal); R10.13 Epigastric pain; I50.22 Chronic systolic (congestive) heart failure; R74.01 Elevation of levels of liver transaminase levels; R16.2 Hepatomegaly with splenomegaly, not elsewhere classified; Z95.810 Presence of automatic (implantable) cardiac defibrillator; G71.01 Duchenne or Becker muscular dystrophy; I95.9 Hypotension, unspecified; I42.0 Dilated cardiomyopathy; R77.8 Other specified abnormalities of plasma proteins; R94.31 Abnormal electrocardiogram [ECG] [EKG]; R74.8 Abnormal levels of other serum enzymes; R63.0 Anorexia; R82.2 Biliuria; R10.10 Upper abdominal pain, unspecified; Z68.1 Body mass index [BMI] 19.9 or less, adult
CPT/HCPCS: 36415; 71046-TC-FY; 74176-TC; 76705-TC; 80053; 80307; 81003; 82550; 82553; 82728; 83516; 83690; 83735; 84484; 85025; 86038; 86704; 86706; 86707; 86708; 86709; 87340; 87389; 87522; 93005; 93010; 93306-TC; 99285-25; C9803; U0003